=== PATIENT | female | born 1990 | race Caucasian/White ===

== ENCOUNTER 2018-10-20 21:50 | Emergency (ER) | payer SELFPAY ==
[~2018-10-20] VITALS: Ht 167.6 cm; Wt 63.5 kg
--- NOTE | 2018-10-20 21:50 | NUR ---
ED Nurse Note: PT BIBA R29 from home c/o substance abuse- GHB, Adderall, unspecified drug today. 5mg Versed given on field. Patient asleep; arousable to deep pain. NAD. VSS. Accompanied by family member.
--- NOTE | 2018-10-20 21:59 | Emergency Room Report ---
History of Present Illness General Chief Complaint: Substance Abuse Source: Family Member Present Illness HPI This is a 28-year-old female who abuses GHB. She was brought in by EMS with chief complaint of overdose. According to her sister, patient admit to using GHB today. She then starting acting erratically. That a hard time getting into her apartment so they called 911. Patient was acting aggressively and was given 5 mg Versed IM I EMS. She is now unresponsive. Unknown other substance abuse. No obvious alcohol or other drug use. No suicidal attempt. Denies any other complaint. Allergies: Coded Allergies: No Known Allergies (Unverified , 10/20/18) Patient History Past Medical History: see triage record, old chart reviewed Past Surgical History: other Pertinent Family History: none Social History: Reports: drug use; Denies: smoking Last Menstrual Period: unknown Now: No - unknown : 1 Para: 0 Immunizations: other Reviewed Nursing Documentation: PMH: Agreed; PSxH: Agreed Nursing Documentation-PMH Past Medical History: No Stated History Review of Systems Eye: Denies: eye pain, blurred vision ENT: Denies: ear pain, nose congestion, throat swelling Respiratory: Denies: cough, shortness of breath Cardiovascular: Denies: chest pain, palpitations Gastrointestinal: Denies: abdominal pain, diarrhea, nausea, vomiting Musculoskeletal: Denies: back pain, joint pain Skin: Denies: rash Neurological: Denies: headache, numbness Endocrine: Denies: increased thirst, increased urine Hematologic/Lymphatic: Denies: easy bruising All Other Systems: limited - Unable to get review of secondary to condition Physical Exam Vital Signs Date Time Temp Pulse Resp B/P (MAP) Pulse Ox O2 Delivery O2 Flow Rate FiO2 10/20/18 21:46 62 12 109/70 97 Room Air vitals normal Sp02 EP Interpretation: reviewed, normal General Appearance: well appearing, no apparent distress, Stupor Head: normocephalic, atraumatic Eyes: bilateral eye PERRL, bilateral eye EOMI ENT: hearing grossly normal, normal pharynx Neck: full range of motion, supple, no meningismus Respiratory: chest non-tender, lungs clear, normal breath sounds Cardiovascular #1: regular rate, rhythm, no murmur Gastrointestinal: normal bowel sounds, non tender, no mass, no organomegaly, no bruit, non-distended Musculoskeletal: back normal, normal range of motion Neurologic: grossly normal - Withdraw to pain in all 4 extremities Skin: warm/dry Medical Decision Making Diagnostic Impression: Primary Impression: Substance abuse Additional Impressions: UTI (urinary tract infection) Qualified Codes: N30.00 - Acute cystitis without hematuria Gamma-hydroxybutyrate (GHB) use disorder, moderate ER Course Patient presents with GHB abuse. She had to psychosis from it. She is awake now and better. She claimed that she is taking Adderall and this accounted for the positive amphetamine. She may have a urinary tract infection. We'll discharge home with antibiotics. Last Vital Signs Date Time Temp Pulse Resp B/P (MAP) Pulse Ox O2 Delivery O2 Flow Rate FiO2 10/20/18 21:46 62 12 109/70 97 Room Air Status: improved Disposition: HOME, SELF-CARE Condition: Stable Scripts Nitrofurantoin Monohyd/M-Cryst (Nitrofurantoin Oxford-Mcr 100 mg) 100 Mg Capsule 100 MG ORAL Q12H, #14 CAP Prov: Wali Harrington MD 10/20/18 Patient Instructions: Substance Use Disorder Additional Instructions: Abstain from drugs and alcohol. Follow-up with your doctor in 7 days. Return if worse. Wali Harrington MD Oct 20, 2018 21:59
[2018-10-20 22:00] VITALS: BP 109/70
--- NOTE | 2018-10-20 22:00 | NUR ---
ED Nurse Note: IV access established. Blood and urine collected; sent down to lab.
[2018-10-20 22:17] LABS: BASOPHILS % (AUTO) 0.7 % (0.0-2.0); EOSINOPHILS % (AUTO) 0.3 % (0.0-3.0); HEMATOCRIT 40.1 % (37.0-47.0); HEMOGLOBIN 13.7 G/DL (12.0-16.0); LYMPHOCYTES % (AUTO) 31.2 % (20.0-45.0); MEAN CORPUSCULAR VOLUME 90 FL (80-99); MONOCYTES % (AUTO) 7.9 % (1.0-10.0); NEUTROPHILS % (AUTO) 59.9 % (45.0-75.0); PLATELET COUNT 263 K/UL (150-450); RED BLOOD COUNT 4.48 M/UL (4.20-5.40); WHITE BLOOD COUNT 11.6 K/UL (4.8-10.8)
[2018-10-20 22:19] LABS: APPEARANCE,URINE CLOUDY; BILIRUBIN, URINE NEGATIVE (NEGATIVE); GLUCOSE, URINE (UA) NEGATIVE (NEGATIVE); KETONES,URINE 2+ (NEGATIVE); LEUKOCYTE ESTERASE ,URINE NEGATIVE (NEGATIVE); NITRITE,URINE NEGATIVE (NEGATIVE); PH,URINE 5 (4.5-8.0); PROTEIN,URINE 2+ (NEGATIVE); UROBILINOGEN,URINE 1 MG/DL (0.0-1.0)
[2018-10-20 22:23] LABS: COLOR,URINE YELLOW
[2018-10-20 22:27] LABS: ANION GAP 11 mmol/L (5-15); BLOOD UREA NITROGEN 14 mg/dL (7-18); CARBON DIOXIDE 29 MMOL/L (21-32); CHLORIDE 102 MMOL/L (98-107); CREATININE 0.9 MG/DL (0.55-1.30); POTASSIUM 3.9 MMOL/L (3.5-5.1); SODIUM 142 MMOL/L (136-145)
--- NOTE | 2018-10-20 22:47 | NUR ---
ED Nurse Note: Patient awake alert and oriented x4. Pt able to recall incident. Family at bedside. ERMD notified.
[2018-10-20] MEDS ORDERED: MACROBID100 MG ORAL (22:58)
[2018-10-20 23:00] VITALS: BP 109/70
--- NOTE | 2018-10-20 23:00 | NUR ---
ER DISCHARGE NOTE: Patient is cleared to be discharged per ERMD, pt is aox4, on room air, with stable vital signs. accompanied by family member. pt was given dc and prescription instructions, pt was able to verbalize understanding, pt id band and iv site removed without complications. pt is able to ambulate with steady gait. pt took all belongings.
== END 2018-10-20 23:00 | disposition home or self-care (01) ==
LOC: EDBD 21:50 → EMR 22:03
DX: F19.10 Other psychoactive substance abuse, uncomplicated (principal); N30.00 Acute cystitis without hematuria
CPT/HCPCS: 36415; 80048; 80307; 81001; 81025; 85025; 87086; 96360; 99284; G0480; 80329

== ENCOUNTER 2018-10-22 04:43 | Emergency (ER) | payer SELFPAY ==
[~2018-10-22] VITALS: Ht 165.1 cm; Wt 63.5 kg
[~2018-10-22 04:43] MED LIST: MACROBID100 MG ORAL
--- NOTE | 2018-10-22 04:47 | NUR ---
ED Nurse Note: Patient MAICOL presents with complaints of momentary change in level of consciousness. Patient was observed sleeping and unresponsive to being awkened. Parents were concerned about patient choking off of gum. Patient removed gum upon arrival. PAtient is A&Ox4 and has no s/s of previous report. Patient has no other complaints.
[2018-10-22 04:51] VITALS: BP 115/79
--- NOTE | 2018-10-22 05:18 | NUR ---
ED Nurse Note: Patient cleared for discharge by ERMGisela post family consultation. PAtient is A$Ox4, ambulatory with steady gait, no s/s of acute distress. Patient verbalized understanding and discharge instructions along with follow up recommendations. ID band removed. Patient departed with all belongings accompanied by her mom and sister.
[2018-10-22 05:24] VITALS: BP 115/79
--- NOTE | 2018-10-22 06:15 | Emergency Room Report ---
History of Present Illness General Chief Complaint: Altered Mental Status Source: Patient, Family Member Present Illness HPI 28-year-old female presents ED for evaluation. Brought in by EMS for possible overdose. Was found this morning by her mother very lethargic and difficult to arouse states she called 911. Upon arrival patient is awake alert oriented 3. Mother and sister at bedside. Patient states she does not recall what happened. Patient states that she was here last night in the ER. Sister stated that patient had used GHB and was altered. Patient ultimately was more awake and subsequently discharged. Patient admitted to [facility] the prior night but denies any drug use tonight. States that she does not sleep well last night. Patient admits to taking Adderall, also alternates between Xanax, Ativan and Ambien for sleep. Denies any alcohol use. States she feels fine at this time. Denies any pain. Denies any nausea or vomiting. No other aggravating relieving factors. Denies any other associated symptoms Allergies: Coded Allergies: No Known Allergies (Unverified , 10/20/18) Patient History Past Medical History: psych hx Past Surgical History: none Pertinent Family History: none Social History: Reports: drug use; Denies: smoking, alcohol use Last Menstrual Period: UNK Now: No Immunizations: UTD Reviewed Nursing Documentation: PMH: Agreed; PSxH: Agreed Nursing Documentation-PM Past Medical History: No History, Except For History Of Psychiatric Problem: Yes Review of Systems All Other Systems: negative except mentioned in HPI Physical Exam Vital Signs Date Time Temp Pulse Resp B/P (MAP) Pulse Ox O2 Delivery O2 Flow Rate FiO2 10/22/18 04:35 98.8 88 22 115/79 98 Room Air Sp02 EP Interpretation: reviewed, normal General Appearance: no apparent distress, alert, GCS 15, non-toxic Head: normocephalic, atraumatic Eyes: bilateral eye normal inspection, bilateral eye PERRL ENT: hearing grossly normal, normal pharynx, no angioedema, normal voice Neck: full range of motion, supple/symm/no masses Respiratory: chest non-tender, lungs clear, normal breath sounds, speaking full sentences Cardiovascular #1: regular rate, rhythm, no edema Cardiovascular #2: 2+ carotid (R), 2+ carotid (L), 2+ radial (R), 2+ radial (L) , 2+ dorsalis pedis (R), 2+ dorsalis pedis (L) Gastrointestinal: normal bowel sounds, non tender, soft, non-distended, no guarding, no rebound Rectal: deferred Genitourinary: normal inspection, no CVA tenderness Musculoskeletal: back normal, gait/station normal, normal range of motion, non- tender Neurologic: alert, oriented x3, responsive, motor strength/tone normal, sensory intact, speech normal Psychiatric: judgement/insight normal, memory normal, mood/affect normal, no suicidal/homicidal ideation, no delusions, anxious Reflexes: 3+ bicep (R), 3+ bicep (L), 3+ tricep (R), 3+ tricep (L), 3+ knee (R) , 3+ knee (L) Skin: normal color, no rash, warm/dry, well hydrated Lymphatic: no adenopathy Medical Decision Making Diagnostic Impression: Primary Impression: Altered mental status Qualified Codes: R41.82 - Altered mental status, unspecified Additional Impression: Polypharmacy ER Course Hospital Course 28-year-old F presents to ED with altered mental status. Differential diagnoses include: Psychosis, EtOH, drug abuse Clinical course patient placed on stretcher. On cafe server. After initial history, physical exam reveals female in no acute distress. She is awake alert oriented 3 on assessment. States she feels okay. Cranial nerves 2 through 12 grossly intact. No focal neurological deficits. I reviewed EMR. Patient was seen the previous night for altered mental status. Was awake shortly after arrival. Admitted to GHB use. Sister was at bedside and took patient home Patient denies GHB use tonight. I discussed the possibility of lingering effects of the GHB. Also combined with patient's lack of sleep and using medications such as Ativan, Xanax, Ambien. Patient denies SI or HI. Denies attempting to overdose or hurt herself. I discussed the dangers of polypharmacy along with recreational drug use I explained that patient does have several redundant medications such as Ativan , Xanax and Ambien. She should consider removing one or more of these medications from her regimen. Safe for discharge close outpatient follow-up. Mother and sister at bedside to take patient home. Patient has a psychiatrist to follow-up with i. I feel this is a highly complex case requiring extensive working including EKG/Rhythm strip, Xray/CT/US, Blood/urine lab work, repeat exams while in ED, and administration of strong opiates/narcotics for pain control, admission to hospital or close patient follow up. Diagnosis -AMS, polypharmacy Stable and discharged to home. Followup with PMD/psych. Return to ED if symptoms recur or worsen Last Vital Signs Date Time Temp Pulse Resp B/P (MAP) Pulse Ox O2 Delivery O2 Flow Rate FiO2 10/22/18 05:24 98.8 88 22 115/79 98 Room Air Status: improved Disposition: HOME, SELF-CARE Condition: Stable Referrals: NOT CHOSEN IPA/,REFERRING (PCP) [facility] + [facility] Psych ER - Peds ER - [facility] Intake Hotline - Patient Instructions: Finding Treatment for Addiction Cory Fitzpatrick MD Oct 22, 2018 06:15
== END 2018-10-22 05:16 | disposition home or self-care (01) ==
LOC: EDBD 04:43 → EMR 04:54
DX: R41.82 Altered mental status, unspecified (principal); Z79.899 Other long term (current) drug therapy
CPT/HCPCS: 96360; 99284